=== PATIENT | male | born 1960 | race Caucasian/White ===

== ENCOUNTER 2016-07-27 17:17 | Inpatient (IN) | payer BC ==
--- NOTE | ~2016-07-27 | CN ---
Consultation Report [facility] [address] [place]. [address] NAME: MESSI RICHARDS : 56 STATUS : ADM Gagan PAT#: [id number] AGE: 55 ADM/REG DATE : 07/27/16 MR#: [id number] REPORT SERV DATE: 07/28/16 DICTATED BY: KATIA WASHINGTON DATE: 07/28/16 REPORT STATUS : Draft TRANSCRIBED BY: MODL DATE: 07/28/16 NEUROLOGY CONSULTATION DATE OF CONSULTATION: 07/28/2016 REASON FOR CONSULTATION: TIA, paresthesia, stocking-glove distribution. HOSPITALIST: Margarita Dangelo APN. LOCK UP WORKER: Dr. Felix Workman. HISTORY OF PRESENT ILLNESS: The patient is a 55-year-old male, who had a syncopal event on 07/07/2016. He states he had just gotten home from work and he was in the kitchen getting something to eat. According to the family, he grabbed his chest, complained of pain, and passed out. He was taken to [facility], where he was evaluated and hospitalized for approximately two to three days. He underwent numerous diagnostic testing which came back negative. According to the patient, he had a CT scan and MRI, he had several ultrasounds, and was seen by Cardiology and Neurology. He was released and went home. He went to see Dr. Workman on an outpatient basis and had a cardiac catheterization which came back negative. His troponin values also came back negative. The patient has had a longstanding history of bradycardia, but states "my heart has been strong". When questioned more extensively about weakness, the patient mentions that since 07/07/2016, he has had numbness and tingling in his hands and feet, more specifically in "stocking-glove distribution". It is not consistent. He has it mainly when he exercises. When he is sitting down and at rest, he does not have the numbness and tingling. PAST MEDICAL HISTORY: Hypertension, diabetes mellitus type 2. PAST SURGICAL HISTORY: Cardiac catheterization. HOME MEDICATIONS: Includes Prinivil 20 mg daily and metformin 500 mg before meals and at bedtime. ALLERGIES: NONE. SOCIAL HISTORY: The patient is . He has four children. 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 He does not smoke, drink, alcohol, or use illicits. FAMILY HISTORY: The patient's mother is 78 years old. She is alive and in relatively good health. His father had diabetes and heart disease. He from suicide. Siblings, he has two brothers, one who is diabetic, the other who is relatively healthy. Consultation Report [place] [address] [place]. [address] NAME: MESSI RIHCARDS : 56 STATUS : ADM Gagan PAT#: [id number] AGE: 55 ADM/REG DATE : 07/27/16 MR#: [id number] REPORT SERV DATE: 07/28/16 DICTATED BY: KATIA WASHINGTON DATE: 07/28/16 REPORT STATUS : Draft TRANSCRIBED BY: LISBETH DATE: 07/28/16 REVIEW OF SYSTEMS: For pertinent positives, please refer to HPI. PHYSICAL EXAMINATION: GENERAL: The patient is a 55-year-old male, who stands 5 feet and 11 inches and weighs 114.78 kg. VITAL SIGNS: He is afebrile. Heart rate is 43, respiratory rate 17, O2 saturations on room air 97%, blood pressure 140/79. NEURO: The patient is alert. He is oriented x4. Pupils are 4 mm. PERRLA. Cranial nerves II through XII are intact. Peripheral vision via confrontation is full in both blackmon. He can move all extremities x4. Ajmvml-ji-vfkv, no ataxia. No pronator drift. No asterixis. No tremor. No dysdiadochokinesis. Upper extremity strength is 5/5. Upper DTRs are 1+ bilaterally which would include triceps, biceps, and brachioradialis. No reported sensory deficits even in the hands and fingertips. Lower extremity strength is 5/5. Difficulty eliciting patellar reflexes, however with the patient performing Jendrassik maneuver was able to elicit patellar reflex. Achilles, none elicitable plantar downgoing. No reported sensory deficits. Position sense intact. Temperature sense is intact. Vibratory sense is diminished in the lower extremities from the toes to mid calf. NECK: No carotid bruits, JVD, or thyromegaly. CHEST: Lung sounds clear. CARDIAC: Regular rate and rhythm. Arterial pulses are intact. DP and PT are somewhat diminished. Capillary refill less than 2 seconds. LABORATORY DATA: CBC shows a white count of 12.2, H and H normal. BMP is within normal range except the blood sugar is 134. Vitamin B12 447. A1c 6.7. Cholesterol values are within normal range. Urinalysis negative for UTI. CT of the brain, no acute changes. ASSESSMENT/PLAN: 1. Syncopal event, most likely cardiac in nature, resultant from severe bradycardia; however at this point, I would like to obtain the MRI report from [facility], also obtain a carotid ultrasound if there is one available along with an echocardiogram. Also, the patient will be undergoing pacemaker placement per Cardiology today. 2. Numbness in the patient's stocking-glove distribution. The patient does have reflexes, so this most likely rules out Guillain-Denison. 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 Thank you again for including us in consultation. We will continue to follow with you. PATRICK/LISBETH Katia Washington DNP, ACNP- Consultation Report [address] [address] NAME: MESSI RICHARDS : 56 STATUS : ADM Gagan PAT#: [id number] AGE: 55 ADM/REG DATE : 07/27/16 MR#: [id number] REPORT SERV DATE: 07/28/16 DICTATED BY: KATIA WASHINGTON DATE: 07/28/16 REPORT STATUS : Draft TRANSCRIBED BY: LISBETH DATE: 07/28/16 / [id number] CC: MD Shade Wilkinson M.D.
--- NOTE | ~2016-07-27 | HP ---
History And Physical [place] [id number] [facility] [place]. [address] NAME: MESSI ZELAYA : 56 STATUS : ADM Gagan PAT#: [id number] AGE: 55 ADM/REG DATE : 07/27/16 MR#: [id number] REPORT SERV DATE: 07/27/16 DICTATED BY: EBER SIDDIQUI DATE: 07/27/16 REPORT STATUS : Draft TRANSCRIBED BY: MODYessy DATE: 07/27/16 DATE OF ADMISSION: 07/27/2016 POINT OF ENTRY: [facility] Emergency Department. PRIMARY SOCIAL MEDIA COMMUNITY MANAGER: Felix Workman M.D., F.A.C.C. CHIEF COMPLAINT: Weakness, confusion, and presyncope. HISTORY OF PRESENT ILLNESS: Mr. Zelaya is a 55-year-old gentleman with history of hypertension and jpl-zpprzbk-lrydkztid diabetes mellitus type 2, who presents to the emergency department today with an episode of weakness, confusion, presyncope, as well as ataxia today. The patient states that he suffered a syncopal episode approximately two weeks ago and for that episode, was admitted to [facility] for approximately two or three days. According to his , it sounds as if he had an extensive workup including CT scan of the brain, MRI, echocardiogram, carotid arterial Dopplers, as well as EEG and Neurology and Cardiology consultations. They were unable to find the ultimate cause of the patient's syncope, and he was discharged to home. Shortly after discharge, he was referred to see Dr. Workman by his primary care doctor and underwent outpatient cardiac catheterization on 07/17/2016, which did not show any evidence of obstructive coronary artery disease. states that before his syncopal episode two weeks ago. He did also have some weakness, stumbling, as well as disorientation and immediately before his syncopal episode, clutched his chest, and complained of some chest pain. also states that while at [facility], they did note some mildly low heart rates in the high 40s to low 50s, but this was reportedly not pursued as the source of his syncopal episode. Again today, he came home from work and found him to be weak with resulting difficulties walking and stumbling as well as some mild disorientation, but denied any slurred speech. states that he almost passed out today, but did not completely pass out. states that his symptoms lasted about an hour and have since completely resolved. Initial evaluation in the emergency department is notable for labs otherwise unremarkable. EKG is nonischemic. Troponin is negative. CT scan of the brain is negative. Chest x-ray is clear. He was noted to be mildly bradycardic with heart rates ranging between 48 to 56. His orthostatic vital signs are negative. The patient was subsequently admitted to the Hospitalist Service for further evaluation and management. The patient denies any preceding nausea, vomiting, vision changes, headache, chest pain, palpitations, or shortness of breath prior to his presyncope and syncopal episodes. He History And Physical [address] [address] NAME: MESSI ZELAYA : 56 STATUS : ADM Gagan PAT#: [id number] AGE: 55 ADM/REG DATE : 07/27/16 MR#: [id number] REPORT SERV DATE: 07/27/16 DICTATED BY: EBER SIDDIQUI DATE: 07/27/16 REPORT STATUS : Draft TRANSCRIBED BY: LISBETH DATE: 07/27/16 states his blood sugars have been well controlled. States that he has been noted to be bradycardic for at least a few years now, but again, his slow heart rates have never been pursued by physicians. Comprehensive review of systems otherwise negative unless listed in history of present illness. PREVIOUS MEDICAL HISTORY: 1. Hypertension. 2. Xpw-zzdcgmz-yyziyuber diabetes mellitus type 2. SURGICAL HISTORY: Cardiac catheterization. ALLERGIES: NO KNOWN DRUG ALLERGIES. HOME MEDICATIONS: 1. Metformin 500 mg b.i.d. 2. Lisinopril 20 mg daily. SOCIAL HISTORY: Denies any tobacco, alcohol, or illicits. FAMILY MEDICAL HISTORY: Mother is healthy in her 70s. Father, history of diabetes, heart disease, as well as from suicide. Siblings with diabetes. LABS AND IMAGIN. White count is 11.8, hemoglobin is 15.2, hematocrit is 44.5, platelet count is 218, INR 1.0. 2. Sodium is 138, potassium 4.2, chloride 107, carbon dioxide 27, BUN 16, creatinine 1.09, glucose is 134, calcium is 9.4, magnesium is 2.1. 3. Troponin less than 0.02. 4. CT scan of the brain shows no acute intracranial abnormality. 5. Chest x-ray per my review shows some left basilar atelectasis. Otherwise, no acute cardiopulmonary abnormality. 6. EKG per my review shows sinus bradycardia with heart rate of 54 with no evidence of any acute ischemia or infarction. 7. Orthostatic vital signs are also unremarkable for orthostatic hypotension. PHYSICAL EXAMINATION: VITAL SIGNS: Temperature 97.8 degrees Fahrenheit, pulse is 57, respirations 16, saturating 98% on room air, blood pressure 132/72. On recheck, blood pressure is now 125/66, pulse is 51. GENERAL: The patient is awake, alert, in no acute distress, resting comfortably. He is a well-developed, well-nourished middle-aged male. and daughter are at bedside. HEENT: Atraumatic and normocephalic. Moist mucous membranes. Pupils are equal, round, reactive to light and accommodation. Extraocular eye movements are intact. No scleral icterus. NECK: No jugular venous distention or carotid bruits. CARDIAC: Bradycardic rate, regular rhythm. No murmurs or gallops. Normal S1, S2. History And Physical [address] [address] NAME: MESSI ZELAYA : 56 STATUS : ADM Gagan PAT#: [id number] AGE: 55 ADM/REG DATE : 07/27/16 MR#: [id number] REPORT SERV DATE: 07/27/16 DICTATED BY: EBER SIDDIQUI DATE: 07/27/16 REPORT STATUS : Draft TRANSCRIBED BY: LISBETH DATE: 07/27/16 LUNGS: Clear to auscultation bilaterally. No wheezes, rhonchi, or rales. ABDOMEN: Soft, nontender, nondistended with good bowel sounds. No rebound, guarding, or rigidity. Obese. EXTREMITIES: Warm and perfused. No cyanosis, clubbing, or edema. SKIN: Warm and dry. PSYCH: Affect appropriate. NEURO: Alert and oriented x3. Cranial nerves 2 through 12 grossly intact. Speech is normal. Gait not assessed. Strength is 5/5 bilateral upper and lower extremities. ASSESSMENT AND PLAN: Mr. Zelaya is a 55-year-old gentleman, who now seems to have had two distinct episodes of weakness, disorientation, ataxia with one resulting in a syncopal episode and the other one resulting in presyncope. PROBLEM LIST: 1. Syncope and presyncope. 2. Sinus bradycardia. 3. Altered mental status and disorientation. 4. Weakness and ataxia. 5. Hypertension. 6. Dcs-lwvdcey-pxrucqcsl diabetes mellitus type 2. PLAN: 1. Syncope and presyncope. It appears the patient has had an extensive workup thus far both at [facility] as well as through Dr. Workman's office. We will try to obtain records of all results of such testing before we try to repeat testing here. We will place him on some IV fluid hydration. Continue to monitor cardiac telemetry overnight and recheck orthostatic vital signs in the morning. Consult Neurology and Cardiology for assistance. 2. Weakness, disorientation, and ataxia. I suspect this is likely either TIA versus possible symptomatic bradycardia. As such, we will again try to obtain outside hospital records before repeating testing here, consult Neurology and Cardiology for assistance. We will continue cardiac telemetry monitoring, trend out cardiac enzymes, recheck orthostatic vital signs in the morning and place the patient on IV fluids overnight. Again, hold off on any further testing such as echocardiogram and MRI until we can [facility] and Dr. Workman[facility] records. 3. Sinus bradycardia. I suspect this might be the etiology of the patient's symptoms especially since his two episodes seemed to occur immediately after returning home from work and in the setting of exertion. The patient also does endorse some vague sensation of weakness and shortness of breath with exertion other than the two episodes that I have documented. Continue cardiac telemetry monitoring overnight. The patient's family denies any beta-walt or calcium channel walt use. The patient may need Holter monitor study and/or EP study. 4. Dgh-atbykbc-vufvmulde diabetes mellitus 2. Check hemoglobin A1c. Holding metformin. Place on level 2 sliding scale. 5. Hypertension. Continue the patient's home antihypertensives. Holding parameters in place. 6. DVT prophylaxis. Lovenox subcu. History And Physical [address] [address] NAME: MESSI ZELAYA : 56 STATUS : ADM Gagan PAT#: [id number] AGE: 55 ADM/REG DATE : 07/27/16 MR#: [id number] REPORT SERV DATE: 07/27/16 DICTATED BY: EBER SIDDIQUI DATE: 07/27/16 REPORT STATUS : Draft TRANSCRIBED BY: LISBETH DATE: 07/27/16 CODE STATUS: The patient wished to be full code. CRYSTAL/LISBEHT Eber Siddiqui MD / [id number] CC: MD Shade Wilkinson M.D. Felix Workman M.D., F.A.C.C.
--- NOTE | ~2016-07-27 | OP ---
Record Of Operation [facility] [address] [place]. [address] NAME: MESSI RICHARDS : 56 STATUS : DIS Gagan PAT#: [id number] AGE: 55 ADM/REG DATE : 07/27/16 MR#: [id number] REPORT SERV DATE: 07/30/16 DICTATED BY: YURI PANCHAL DATE: 07/30/16 REPORT STATUS : Draft TRANSCRIBED BY: MODL DATE: 07/30/16 DATE OF PROCEDURE: 07/28/2016 PROCEDURE: Permanent pacemaker implantation. INDICATION: Symptomatic bradycardia, sick sinus syndrome. DESCRIPTION OF PROCEDURE: After informed consent was obtained, the patient was taken in a fasting state to the cardiac electrophysiology laboratory where sedation was obtained per Anesthesia. The left subclavicular region was anesthetized using 1% Xylocaine. Left subclavian vein was then entered using a front-wall approach and cannulated with a peel-away sheath. A second stick was performed in the same fashion. A 4-6 cm incision was then made in the left subclavicular region. The pulse generator pocket was then manufactured using electrocautery and blunt dissection with meticulous attention to hemostasis. A right ventricular lead Medtronic 5076-58 cm, serial number [id number] was then introduced. Multiple positions were tested. The lead was affixed in the right ventricular apical region with the R-waves of 8.5 mV, T/81.2 at 0.5 milliseconds. Impedance is 912 ohms. The lead was secured in the pocket using 0 silk. A Medtronic right atrial lead 5076-52 cm, serial number [id number] was then introduced and tested in multiple reasons before being affixed in the right atrial appendage. P-wave was measured at 0.8 mV, T/80.7 V at 0.5 milliseconds. Impedance 664 ohms. This lead was then secured using 0 silk. The pocket was then thoroughly irrigated and again hemostasis was verified. A pulse generator was then introduced and Advisa DR HILDA Sheffield, serial number [id number] Medtronic [id number]. After carefully verifying the sequence, the leads were attached to the pulse generator and it was positioned in the pacemaker pocket and secured using 0 silk. Subcutaneous layer was then reapposed using 2-0 Monocryl. The skin was then reapposed using surgical jaqui. COMPLICATIONS: There were no apparent complications. CONCLUSION: 1. Successful dual-chamber permanent pacemaker implantation. 2. No apparent complications. /LISBETH Yuri Record Of Operation [address] [place]. [address] NAME: MESSI RICHARDS : 56 STATUS : DIS Gagan PAT#: [id number] AGE: 55 ADM/REG DATE : 07/27/16 MR#: [id number] REPORT SERV DATE: 07/30/16 DICTATED BY: YURI PANCHAL DATE: 07/30/16 REPORT STATUS : Draft TRANSCRIBED BY: LISBETH DATE: 07/30/16 Riddhi Panchal, [facility] / [id number] CC: Riddhi Geronimo M.D. Steven Stubblefield, M.D., F.A.C.C.
--- NOTE | ~2016-07-27 | CN ---
Consultation Report [facility] [address] [place]. [address] NAME: MESSI ZELAYA : 56 STATUS : ADM Gagan PAT#: [id number] AGE: 55 ADM/REG DATE : 07/27/16 MR#: [id number] REPORT SERV DATE: 07/28/16 DICTATED BY: YURI PANCHAL DATE: 07/28/16 REPORT STATUS : Draft TRANSCRIBED BY: MODL DATE: 07/28/16 CARDIOVASCULAR CONSULTATION DATE OF CONSULTATION: 07/28/2016 REFERRING PHYSICIAN: Referring physician here is Dr. Rupert Yost. HISTORY OF PRESENT ILLNESS: Mr. Messi Zelaya is a 55-year-old gentleman with past medical history significant for diabetes and hypertension. He presented to the emergency room yesterday with an episode of presyncope, weakness, mild confusion, and some unsteadiness. He reports that he had a similar episode two weeks ago prompting his presentation to [facility] in [place]. He underwent an extensive workup there including MRI, echocardiogram, CT scan, carotid Dopplers, as well as an EEG, and Neurology consultation. He was subsequently catheterized by Dr. Workman at [facility] with no significant coronary artery disease. The patient reports that these episodes have been intermittent for the last three weeks. He reports that they seem to be worse when he has been still or when he has exerted himself, but that he does not seem to have much problem with mild activity. REVIEW OF SYSTEMS: The patient denies any chest pain, shortness of breath, nausea, or diaphoresis. He did have an episode of complete syncope approximately two weeks ago prompting his presentation to [facility]. PAST MEDICAL HISTORY: Has been fairly unremarkable with no surgeries. The patient is only treated for hypertension and diabetes mellitus type 2. FAMILY HISTORY: Positive for coronary artery disease in a grandfather. SOCIAL HISTORY: This patient does not smoke. MEDICATIONS: Prior to admission, metformin and lisinopril. ALLERGIES: THE PATIENT HAS NO KNOWN DRUG ALLERGIES. PHYSICAL EXAMINATION: VITAL SIGNS: Blood pressure 138/87, pulse is currently 44, and respiratory rate is 14. The patient is afebrile. GENERAL: This is a well-developed, well-nourished 55-year-old white male, alert and oriented x3, and in no acute distress. NECK: No jugular venous distention, hepatojugular reflux, or carotid bruits. CARDIOVASCULAR: Decreased rate with regular rhythm. No murmur, gallop, click, or rub. LUNGS: Clear to auscultation without wheezes, rales, or rhonchi. ABDOMEN: Soft, nontender, and nondistended. Positive bowel sounds. EXTREMITIES: Without clubbing, cyanosis, or edema. Consultation Report [address] [place]. [address] NAME: MESSI ZELAYA : 56 STATUS : ADM Gagna PAT#: [id number] AGE: 55 ADM/REG DATE : 07/27/16 MR#: [id number] REPORT SERV DATE: 07/28/16 DICTATED BY: YURI PANCHAL DATE: 07/28/16 REPORT STATUS : Draft TRANSCRIBED BY: LISBETH DATE: 07/28/16 NEUROLOGIC: Grossly nonfocal. DIAGNOSTIC STUDIES: EKG shows sinus bradycardia with no evidence of acute ischemia or injury, and no evidence of recent or remote myocardial infarction. LABORATORY DATA: Telemetry strips are reviewed which reveal heart rate low at 36 beats per minute. Laboratory is significant for a minimally elevated white blood cell count of 12.2. His CBC is otherwise unremarkable. Troponin x3 is negative. Hemoglobin A1c is mildly elevated at 6.7, glucose is 134, BMP is otherwise unremarkable. Urinalysis and urine drug screen are normal. ASSESSMENT: 1. Symptomatic bradycardia. 2. Sick sinus syndrome - symptomatic. 3. Diabetes mellitus type 2. 4. Hypertension. PLAN: I have discussed with this patient the need for permanent pacemaker secondary to symptomatic bradycardia/sick sinus syndrome. I have discussed the risks and benefits, including bleeding, infection, bruising, pneumothorax, perforation, or emergency surgery. The patient is to discuss this with his family. He is hesitant to proceed at this point secondary to work concerns, but states that he will let me know. I appreciate your consultation on this pleasant patient. I will follow him closely with you. /LISBETH Yuri Panchal M.D., [facility] / [id number] CC: Riddhi Geronimo M.D. Steven Stubblefield, M.D., [place]ee
--- NOTE | ~2016-07-27 | DS ---
Discharge Summary [facility] [address] [place]. [address] NAME: MESSI RICHARDS : 56 STATUS : DIS Gagan PAT#: [id number] AGE: 55 ADM/REG DATE : 07/27/16 MR#: [id number] REPORT SERV DATE: 07/30/16 DICTATED BY: DATE: REPORT STATUS : Draft TRANSCRIBED BY: MODL DATE: 07/29/16 ADMISSION DATE: 07/27/2016 DISCHARGE DATE: 07/29/2016 DISCHARGE DIAGNOSES: 1. Syncope with presyncopal episodes. 2. Weakness with ataxia. 3. Symptomatic bradycardia. 4. Diabetes mellitus type 2. 5. Hypertension. 6. Sick sinus syndrome. CONSULTATIONS: Dr. Cheng with Cardiology and Maribel Powers D.N.P. with Neurology. PROCEDURES AND IMAGIN. 07/27/2016, chest PA and lateral showed minimal left basilar atelectasis. Otherwise, no cardiopulmonary abnormality identified. 2. 07/27/2016, CT of the brain without contrast showed negative noncontrast head CT. 3. 07/28/2016, venous duplex of lower extremity showed normal indices and normal waveforms in both lower extremities. 4. 07/28/2016, insertion of pacemaker by Dr. Cheng. HOSPITAL COURSE: Please refer to Dr. Rupert Yost's initial H and P on 07/27/2016 for complete details regarding the patient's admission. In brief, the patient was admitted by Dr. Yost for initial workup and management of his weakness, confusion, and presyncope. The patient had previously suffered a syncopal episode two weeks ago and had been worked up at [facility] for several days. Those studies have been placed in our chart. Shortly after discharge due to similar symptoms, his primary care doctor referred him to Dr. Workman, and the patient underwent a cardiac cath on 07/17/2016, for which the patient did not have any percutaneous intervention. The patient's cardiac enzymes during his stay have been within normal limits at less than 0.02. The patient's TSH was 2.74. The patient's electrolytes have been stable. Please see H and P dictated by Dr. Katia Powers on 07/28/2016 as well as dictation by Dr. Felix Cheng, Cardiology on 07/18/2016. It was felt by Dr. Cheng that the patient was having symptomatic sick sinus syndrome as well as symptomatic bradycardia. The patient had complained of tingling in his extremities as well as confusion. The patient has well-controlled blood sugar with hemoglobin A1c mildly elevated at 6.7. His urinalysis and drug screen have been normal. The patient underwent a pacemaker insertion on 07/28/2016, and the patient states he is feeling much better since this intervention. PHYSICAL EXAMINATION: VITAL SIGNS: Blood pressure is 119/67, O2 saturation is 95% on room air, heart rate is 62, temperature is 98.3, respirations are 20. HEENT: Head is atraumatic, normocephalic. Pupils are equal, round, reactive to light and accommodation. Sclerae are clear and nonicteric. NECK: Supple with no obvious thyromegaly or lymphadenopathy. Neck veins are flat. Discharge Summary [address] [address] NAME: MESSI RICHARDS : 56 STATUS : DIS Gagan PAT#: [id number] AGE: 55 ADM/REG DATE : 07/27/16 MR#: [id number] REPORT SERV DATE: 07/30/16 DICTATED BY: DATE: REPORT STATUS : Draft TRANSCRIBED BY: MODL DATE: 07/29/16 CARDIAC: The patient has a paced rhythm with no obvious murmurs, rubs, or gallops. LUNGS: Lungs are clear to auscultation with normal respiratory effort. GI: Abdomen is soft and nontender with active bowel sounds in all four quadrants. Normal bowel habitus. No palpable organomegaly. EXTREMITIES: No significant edema, clubbing, or cyanosis. Dorsalis pedis and posterior tibial pulses are palpable bilaterally. MUSCULOSKELETAL: Moves all extremities x4. He is ambulatory without assistance. No difficulties with balance. SKIN: Skin is warm and dry with normal color and turgor. NEURO/PSYCH: The patient is alert and oriented x4, pleasant, cooperative. Cranial nerves 2 through 12 are grossly intact. SURGICAL WOUND SITE: The patient has a left upper chest pacer pocket with dressings clean, dry, and intact. DISCHARGE MEDICATIONS: Duricef 500 mg t.i.d. x21 doses; lisinopril 20 mg daily; Glucophage 500 mg with breakfast and supper; Lortab 5/325 one to two tablets p.o. q.6 hours p.r.n. pain. FOLLOWUP: The patient is to follow up with Dr. Cheng on 08/07/2016 at 10 a.m. and to follow up with Dr. Workman in one month. The patient is to follow up with his PCP, Dr. Shade Nolen in seven to ten days. The patient is being given Dr. Cheng's pacemaker discharge instructions. Should the patient have any more chest pain, neuropathy, confusion, or weakness, the patient is to call his PCP or present to the ER. ALLERGIES: THE PATIENT HAS NO KNOWN DRUG ALLERGIES. APPROXIMATELY 30 MINUTES HAS BEEN SPENT COORDINATING DISCHARGE CARE OF THIS PATIENT INCLUDING [id number] ENCOUNTER WITH THE PATIENT AND SUMMARIZATION OF THE DISCHARGE. DICTATED BY: Margarita Dangelo NP SLC/MODL Margarita Dangelo NP / [id number] CC: Riddhi Geronimo M.D.
[2016-07-27 14:56] LABS: BASOPHILS 0.2 %; BASOPHILS ABSOLUTE 0.02 10/3/uL (0.0-0.16); EOSINOPHILS 1.4 %; EOSINOPHILS ABSOLUTE 0.17 10/3/uL (0.0-0.53); HEMATOCRIT 44.5 % (40.0-51.0); HEMOGLOBIN 15.2 g/dL (13.6-17.8); IMMATURE GRANULOCYTES 0.3 %; IMMATURE GRANULOCYTES ABSOLUTE 0.04 10/3/uL (0.0-0.11); LYMPHOCYTES 22.3 %; LYMPHOCYTES ABSOLUTE 2.64 10/3/uL (0.67-4.30); MEAN CORPUS HGB CONC 34.2 g/dL (32.0-36.0); MEAN CORPUSCULAR HEMOGLOB 29.5 pg (26.0-34.0); MEAN CORPUSCULAR VOLUME 86.4 fL (80-100); MEAN PLATELET VOLUME 9.4 fL (9.2-13.0); MONOCYTES 5.7 %; MONOCYTES ABSOLUTE 0.68 10/3/uL (0.21-1.20); NEUTROPHILS 70.1 %; NEUTROPHILS ABSOLUTE 8.28 10/3/uL (2.02-8.40); PLATELET COUNT 218 10/3/uL (150-400); RBC DISTRIBUTION WIDTH 13.4 % (12.0-16.0); RED CELL COUNT 5.15 10/6/uL (4.7-6.1); WHITE BLOOD CELLS 11.8 10/3/uL (4.5-10.5)
[2016-07-27 15:02] LABS: PARTIAL THROMBO TIME 29.8 SEC (22.5-37.2); PROTIME (NOT ORD) 13.3 SEC (12.0-14.5)
[2016-07-27 15:05] LABS: ER CBC TAT 0 Hrs 11 Mins; MANUAL DIFF NO %
[2016-07-27 15:11] LABS: BUN (BLOOD UREA NITROGEN) 16 MG/DL (6-23); CALCIUM, SERUM 9.4 MG/DL (8.5-10.4); CHEST PAIN PROFILE TAT 0 Hrs 26 Mins; CHLORIDE, SERUM 107 MMOL/L (96-112); CO2 (CARBON DIOXIDE) 27 MMOL/L (24-34); CREATININE 1.09 MG/DL (0.70-1.30); GFR AFRICAN AMERICAN 87 ML/MIN (>=60); GFR NON AFRICAN AMERICAN 75 ML/MIN (>=60); GLUCOSE, SERUM 134 MG/DL (60-99); POTASSIUM, SERUM 4.2 MMOL/L (3.5-5.3); SODIUM, SERUM 138 MMOL/L (135-148); TROPONIN I <0.02 NG/ML (<0.05)
[~2016-07-27 17:17] MED LIST: GLUCPH PO; PRIN20 PO
[2016-07-27 20:10] LABS: BASOPHILS 0.2 %; BASOPHILS ABSOLUTE 0.03 10/3/uL (0.0-0.16); EOSINOPHILS 1.6 %; HEMATOCRIT 43.4 % (40.0-51.0); HEMOGLOBIN 14.8 g/dL (13.6-17.8); IMMATURE GRANULOCYTES 0.4 %; IMMATURE GRANULOCYTES ABSOLUTE 0.05 10/3/uL (0.0-0.11); LYMPHOCYTES 25.4 %; LYMPHOCYTES ABSOLUTE 3.09 10/3/uL (0.67-4.30); MEAN CORPUS HGB CONC 34.1 g/dL (32.0-36.0); MEAN CORPUSCULAR HEMOGLOB 29.8 pg (26.0-34.0); MEAN CORPUSCULAR VOLUME 87.3 fL (80-100); MEAN PLATELET VOLUME 9.5 fL (9.2-13.0); MONOCYTES 7.5 %; MONOCYTES ABSOLUTE 0.91 10/3/uL (0.21-1.20); NEUTROPHILS 64.9 %; NEUTROPHILS ABSOLUTE 7.87 10/3/uL (2.02-8.40); PLATELET COUNT 224 10/3/uL (150-400); RBC DISTRIBUTION WIDTH 13.5 % (12.0-16.0); RED CELL COUNT 4.97 10/6/uL (4.7-6.1); WHITE BLOOD CELLS 12.2 10/3/uL (4.5-10.5)
[2016-07-27 20:14] LABS: MANUAL DIFF NO %
[2016-07-27 20:18] LABS: INTERNATIONAL NORMAL RATI 1.1 UNITS (-); PARTIAL THROMBO TIME 30.6 SEC (22.5-37.2); PROTIME (NOT ORD) 13.9 SEC (12.0-14.5)
[2016-07-27 20:49] LABS: CHOL/HDL RATIO(NOT ORDER) 3.9 (0-5); CHOLESTEROL 132 MG/DL (< 200); CPK (IF ELEVATED MB BANDS) 53 U/L (0-200); FREE T4 0.98 NG/DL (0.76-1.46); HDL CHOLESTEROL 34 MG/DL (> 39); LDL CHOLESTEROL 81 MG/DL (< 130); NON-HDL CHOLESTEROL 98 MG/DL (< 160); TRIGLYCERIDE 87 MG/DL (< 150); TROPONIN I <0.02 NG/ML (<0.05)
[2016-07-27 20:50] LABS: FOLATE 14.5 NG/ML (>5.2)
[2016-07-27 21:16] LABS: GLYCOHEMOGLOBIN (HbA1c) 6.7 % (4.7-6.1)
[2016-07-27 22:34] LABS: AMPHETAMINES (NOT ORD) NEG (NEG); BARBITURATES (NOT ORDERED NEG (NEG); BENZODIAZEPINES (NOT ORD) NEG (NEG); CANNABINOIDS (THC) NEG (NEG); COCAINE (NOT ORDERED) NEG (NEG); OPIATES NEG (NEG); PHENCYCLIDINE(PCP) NEG (NEG); TRICYCLICS NEG (NEG)
[2016-07-27 22:52] LABS: ASCORBIC ACID (UR NOT ORDER) NEG (NEG); BILIRUBIN, URINE NEGATIVE (NEG); KETONE, URINE NEGATIVE (NEG); LEUKOCYTE ESTERASE(NOT OR NEG (NEG); NITRITE (URINE) NEG (NEG); WBC (NOT ORDERED) (RFLEX) < 1 (0-5)
[2016-07-28 03:45] LABS: CPK 54 U/L (0-200); TROPONIN I <0.02 NG/ML (<0.05)
[2016-07-28 03:49] LABS: CK-MB < 0.5 NG/ML
[2016-07-29 03:51] LABS: BASOPHILS 0.2 %; BASOPHILS ABSOLUTE 0.02 10/3/uL (0.0-0.16); EOSINOPHILS 1.5 %; EOSINOPHILS ABSOLUTE 0.14 10/3/uL (0.0-0.53); HEMATOCRIT 40.3 % (40.0-51.0); HEMOGLOBIN 13.8 g/dL (13.6-17.8); IMMATURE GRANULOCYTES 0.3 %; IMMATURE GRANULOCYTES ABSOLUTE 0.03 10/3/uL (0.0-0.11); LYMPHOCYTES 24.1 %; MANUAL DIFF NO %; MEAN CORPUS HGB CONC 34.2 g/dL (32.0-36.0); MEAN CORPUSCULAR HEMOGLOB 29.9 pg (26.0-34.0); MEAN CORPUSCULAR VOLUME 87.4 fL (80-100); MEAN PLATELET VOLUME 9.3 fL (9.2-13.0); MONOCYTES 7.1 %; MONOCYTES ABSOLUTE 0.68 10/3/uL (0.21-1.20); NEUTROPHILS 66.8 %; NEUTROPHILS ABSOLUTE 6.39 10/3/uL (2.02-8.40); PLATELET COUNT 185 10/3/uL (150-400); RBC DISTRIBUTION WIDTH 13.3 % (12.0-16.0); RED CELL COUNT 4.61 10/6/uL (4.7-6.1); WHITE BLOOD CELLS 9.6 10/3/uL (4.5-10.5)
[2016-07-29 04:06] LABS: BUN (BLOOD UREA NITROGEN) 15 MG/DL (6-23); CALCIUM, SERUM 8.6 MG/DL (8.5-10.4); CHLORIDE, SERUM 108 MMOL/L (96-112); CO2 (CARBON DIOXIDE) 28 MMOL/L (24-34); GFR AFRICAN AMERICAN 86 ML/MIN (>=60); GFR NON AFRICAN AMERICAN 74 ML/MIN (>=60); GLUCOSE, SERUM 113 MG/DL (60-99); POTASSIUM, SERUM 4.5 MMOL/L (3.5-5.3); SODIUM, SERUM 141 MMOL/L (135-148)
[2016-07-29] MEDS ORDERED: K500 PO (13:54)
[2016-07-29] MEDS ORDERED: NORCO1 TA1 PO (14:00)
[2016-08-26] MEDS ORDERED: SEPTRA DS1 TAB PO (13:12)
[2016-08-26] MEDS ORDERED: NORCO1 TA1 PO (13:20)
[2016-10-01] MEDS ORDERED: K500 PO (10:21)
[2016-10-01] MEDS ORDERED: NORCO1 TA1 PO (10:23)
[2016-11-04] MEDS ORDERED: K500 PO (17:03)
== END 2016-07-29 14:12 | disposition home or self-care (01) | DRG 244 ==
LOC: ER 17:17 → CDU1 18:04
PROVIDERS: Emergency Medicine; Internal Medicine; Nurse Practitioner Family
PROC: 0JH606Z Insertion of Pacemaker, Dual Chamber into Chest Subcutaneous Tissue and Fascia, Open Approach (ICD-10-PCS; principal; 2016-07-28)
PROC: 02HK3JZ Insertion of Pacemaker Lead into Right Ventricle, Percutaneous Approach (ICD-10-PCS; 2016-07-28)
PROC: 02H63JZ Insertion of Pacemaker Lead into Right Atrium, Percutaneous Approach (ICD-10-PCS; 2016-07-28)
DX: I49.5 Sick sinus syndrome (principal); E11.65 Type 2 diabetes mellitus with hyperglycemia; I10 Essential (primary) hypertension
CPT/HCPCS: 33208; 70450; 71020; 80048; 80061; 80305; 81001; 82140; 82550; 82553; 82607; 82746; 82962; 83036; 83735; 84439; 84443; 84484; 85025; 85610; 85730; 93005; 93925; 97161-GP; 99285; A9270-GY; C1785; C1892; C1898; J0690; J2250; J3010